=== PATIENT | male | born 1940 | race Caucasian/White ===

== ENCOUNTER → 2020-03-18 12:06 | Outpatient (BNVA) | payer MEDICARE, SELFPAY | PROVIDERS: Visit Provider Urology | DX: Z76.89 Persons encountering health services in other specified circumstances (principal) | CPT/HCPCS: Q3014 ==

== ENCOUNTER → 2020-03-27 14:44 | Outpatient (BNVA) | payer MEDICARE, SELFPAY | PROVIDERS: PCP Student in an Organized Health Care Education/Training Program; Referring Provider Student in an Organized Health Care Education/Training Program; Visit Provider Hospitalist | DX: J44.9 Chronic obstructive pulmonary disease, unspecified (principal); J96.11 Chronic respiratory failure with hypoxia; R26.81 Unsteadiness on feet; F03.90 Unspecified dementia, unspecified severity, without behavioral disturbance, psychotic disturbance, mood disturbance, and anxiety; Z99.81 Dependence on supplemental oxygen | CPT/HCPCS: 99212 ==

== ENCOUNTER → 2020-06-12 13:11 | Outpatient (BNVA) | payer MEDICARE, SELFPAY | PROVIDERS: PCP Student in an Organized Health Care Education/Training Program; Visit Provider Urology | DX: R32 Unspecified urinary incontinence (principal); N32.0 Bladder-neck obstruction; N39.0 Urinary tract infection, site not specified | CPT/HCPCS: 99212 ==

== ENCOUNTER 2020-07-07 12:09 | Outpatient (REF) | payer MEDICARE, SELFPAY | END 2020-07-07 12:10 | disposition home or self-care (01) | LOC: HO.LAB 12:09 | PROVIDERS: PCP Student in an Organized Health Care Education/Training Program; Visit Provider Urology | DX: Z13.89 Encounter for screening for other disorder (principal) ==

== ENCOUNTER 2020-07-07 12:35 | Emergency (ER) | payer MEDICARE, SELFPAY ==
--- NOTE | 2020-07-07 13:03 | ED.CPR ---
HPI - CPR General Chief Complaint: Cardiac Arrest/CPR Stated Complaint: syncopal episode Time Seen by Provider: 07/07/20 13:03 Source: family Mode of arrival: ambulatory Limitations: other (in cardiac arrest) History of Present Illness HPI narrative: Daughter brought patient in for outpatient labs when he became short of breath and collapsed in the bathroom. Patient brought to the ED in full cardiac arrest at about 1:30pm MD complaint: found unresponsive and collapsed during rest Timing confirmed by: other (daughter) Place: other (hospital) Known history of: CAD, arrhythmia and pacemaker Related Data Home Medications Medication Instructions Recorded Confirmed cholecalciferol (vitamin D3) 25 25 mcg PO DAILY 03/18/20 03/27/20 mcg (1,000 unit) tablet divalproex 125 mg tablet,delayed 125 mg PO BID 03/18/20 03/27/20 release donepezil 10 mg tablet 10 mg PO DAILY 03/18/20 03/27/20 duloxetine 30 mg capsule,delayed 30 mg PO DAILY 03/18/20 03/27/20 release ipratropium bromide 0.03 % nasal INTRANASAL 03/18/20 03/27/20 spray isosorbide mononitrate 30 mg 30 mg PO QAM 03/18/20 03/27/20 tablet,extended release 24 hr lisinopril 5 mg tablet 5 mg PO DAILY 03/18/20 03/27/20 memantine 10 mg tablet 10 mg PO BID 03/18/20 03/27/20 memantine 5 mg tablet 5 mg PO BID 03/18/20 03/27/20 metformin 1,000 mg tablet 1,000 mg PO BID 03/18/20 03/27/20 mirtazapine 45 mg tablet 45 mg PO BEDTIME 03/18/20 03/27/20 quetiapine 25 mg tablet 25 mg PO BEDTIME 03/18/20 03/27/20 repaglinide 1 mg tablet 1 mg PO DAILY 03/18/20 03/27/20 trazodone 50 mg tablet 50 mg PO BEDTIME 03/18/20 03/27/20 umeclidinium 62.5 mcg/actuation 0 inh INHALATION 03/18/20 03/27/20 blister powder for inhalation wheelchair #1 03/28/20 03/28/20 Previous Rx's Medication Instructions Recorded mirabegron 50 mg tablet,extended 50 mg PO BID 90 Days #180 tab 03/18/20 release 24 hr metoprolol succinate 50 mg 50 mg PO DAILY 90 Days #90 tab 03/20/20 tablet,extended release 24 hr miscellaneous medical supply #1 ea 03/28/20 ciprofloxacin HCl 250 mg tablet 250 mg PO BID 5 Days #10 tab 04/30/20 mirabegron 25 mg tablet,extended 25 mg PO DAILY 90 Days #90 tab 05/06/20 release 24 hr sulfamethoxazole 400 1 tab PO BID 5 Days #10 tab 05/15/20 mg-trimethoprim 80 mg tablet clopidogrel 75 mg tablet 75 mg PO DAILY #30 tab 05/19/20 finasteride 5 mg tablet 5 mg PO DAILY 90 Days #90 tab 06/12/20 mirabegron 25 mg tablet,extended 25 mg PO DAILY #90 tab 06/12/20 release 24 hr sulfamethoxazole 800 1 tab PO BID 5 Days #10 tab 06/12/20 mg-trimethoprim 160 mg tablet tamsulosin 0.4 mg capsule 0.4 mg PO BEDTIME #90 cap 06/12/20 Allergies Allergy/AdvReac Type Severity Reaction Status Date / Time No Known Allergies Allergy Verified 06/12/20 13:36 [No Known Allergies*] Review of Systems Review of Systems: Yes Unobtainable due to mental condition PMFSH Past Medical History Medical History Chronic respiratory failure COPD (chronic obstructive pulmonary disease) Dementia Unsteady gait Social History Social History Smoking Status: Never smoker Advance Directives: No Advance Directives Information Provided: No Physical Exam Const: Other: elderly male pale in cardiac arrest Nutritional Appearance: average body habitus Orientation/consciousness: Other orientation findings (unresponsive) HENMT: Head: Yes normal to inspection Ears: external ears normal General nose exam: Normal external nose present Mouth: Normal oral and palatal mucosa present and oropharynx normal Throat: Yes posterior oropharynx normal Eyes: General: appearance normal, both eyes and all related structures Neck: Other: supple Neck: Yes normal visual inspection Chest: Chest palpation & inspection: normal inspection of the chest Resp: Other: bilateral BS after intubation Cardio: Other: no heart sounds GI: Inspection: Yes normal to inspection Palpation (GI): Soft to palpation and No hepatosplenomegaly present : Other: normal appearance Back/Spine/Pelvis: Other: normal appearance Skin: General skin exam: no rashes or lesions noted Extrem: General: Yes normal to inspection Psych: Appearance: grossly normal Course Course Course Narrative: ACLS protocol followed for 30 minutes, multiple epi given, bedside ultrasound showed repeatedly no cardiac movement. Procedures Procedure Narrative Procedure Narrative: Patient intubated without medication under direct visualization 7 ETT used, 23 at the lips, good capnometery. Critical Care Time Critical Care Time Attestation: I spent 30 minutes of critical care, with interventions, assessments, speaking to patient, consultants, and family. Code called at 1pm Discharge Plan Discharge Clinical Impression: Cardiac arrest Patient Disposition: on Arrival Prescriptions: No Action metoprolol succinate 50 mg tablet extended release 24 hr 50 mg PO DAILY 90 Days Qty: 90 RF: 1 ciprofloxacin HCl [Cipro] 250 mg tablet 250 mg PO BID 5 Days Qty: 10 RF: 0 Myrbetriq 25 mg tablet extended release 24 hr 25 mg PO DAILY 90 Days Qty: 90 RF: 2 sulfamethoxazole-trimethoprim [Bactrim] 400-80 mg tablet 1 tab PO BID 5 Days Qty: 10 RF: 0 clopidogrel 75 mg tablet 75 mg PO DAILY Qty: 30 RF: 5 (DME) wheelchair Device See Rx Instructions .ROUTE .MEDSUPPLY Qty: 1 RF: 0 (DME) miscellaneous medical supply Package See Rx Instructions .ROUTE .MEDSUPPLY Qty: 1 RF: 0 Incruse Ellipta 62.5 mcg/actuation blister with device 0 inh inhalation RF: 0 isosorbide mononitrate 30 mg tablet extended release 24 hr 30 mg PO QAM RF: 0 divalproex 125 mg tablet,delayed release (DR/EC) 125 mg PO BID RF: 0 trazodone 50 mg tablet 50 mg PO BEDTIME RF: 0 donepezil 10 mg tablet 10 mg PO DAILY RF: 0 quetiapine 25 mg tablet 25 mg PO BEDTIME RF: 0 cholecalciferol (vitamin D3) 25 mcg (1,000 unit) tablet 25 mcg PO DAILY RF: 0 memantine 10 mg tablet 10 mg PO BID RF: 0 mirtazapine 45 mg tablet 45 mg PO BEDTIME RF: 0 duloxetine 30 mg capsule,delayed release(DR/EC) 30 mg PO DAILY RF: 0 memantine 5 mg tablet 5 mg PO BID RF: 0 metformin 1,000 mg tablet 1,000 mg PO BID RF: 0 repaglinide 1 mg tablet 1 mg PO DAILY RF: 0 lisinopril 5 mg tablet 5 mg PO DAILY RF: 0 ipratropium bromide 0.03 % spray,non-aerosol intranasal RF: 0 mirabegron 50 mg tablet extended release 24 hr 50 mg PO BID 90 Days Qty: 180 RF: 1 sulfamethoxazole-trimethoprim [Bactrim DS] 800-160 mg tablet 1 tab PO BID 5 Days Qty: 10 RF: 0 finasteride 5 mg tablet 5 mg PO DAILY 90 Days Qty: 90 RF: 1 Myrbetriq 25 mg tablet extended release 24 hr 25 mg PO DAILY Qty: 90 RF: 1 tamsulosin 0.4 mg capsule 0.4 mg PO BEDTIME Qty: 90 RF: 1
--- NOTE | 2020-07-07 13:11 | PC.NURSE ---
Family at bedside with translator and interpreter at time of .
[2020-07-07 13:12] VITALS: PULSE 130; BMI 24.9
--- NOTE | 2020-07-07 13:32 | PC.NURSE ---
1230 - PT BROUGHT TO ED FROM LAB BY TECHNICAL PROJECT COORDINATOR AFTER OUTPATIENT RESPONSE CALLED. PT PLACED DIRECTLY INTO ROOM 4. PT WITH AGONAL RESPIRATIONS UPON ARRIVAL AND NO PULSE. CPR IMMEDIATELY INITIATED. PT PLACED ON MONITOR, BAGGED WITH BVM, DR HERNANDEZ TO BEDSIDE. DAUGHTER WITH PATIENT. [employer] P[employer] ATTENDANT SPEAKING WITH DAUGHTER AND PROVIDING UPDATES IN REGARDS TO THE CARE BEING PROVIDED. PLEASE SEE PAPER DOCUMENTATION FOR THE CARE PROVIDED.
[2020-07-08 08:55] LABS: Glucose, Whole Blood 263 mg/dL (60-115)
== END 2020-07-07 14:00 | disposition expired ==
PROVIDERS: Emergency Provider Emergency Medicine
DX: I46.9 Cardiac arrest, cause unspecified (principal); J44.9 Chronic obstructive pulmonary disease, unspecified; Z95.0 Presence of cardiac pacemaker; J96.10 Chronic respiratory failure, unspecified whether with hypoxia or hypercapnia; F03.90 Unspecified dementia, unspecified severity, without behavioral disturbance, psychotic disturbance, mood disturbance, and anxiety
CPT/HCPCS: 31500; 82947; 96374; 99283; 99285